=== PATIENT | female | born 1965 | race Caucasian/White ===

== ENCOUNTER 2018-03-29 15:18 | Emergency (ER) | payer BC ==
[2018-03-29 16:03] VITALS: BP 133/76
--- NOTE | 2018-03-29 16:11 | UC ---
FLU HPI - HPI Summary HPI Summary: 52 y/o female presents to the urgent care c/o C/O BODY ACHES AND CHILLS STARTING ON 03/27/18. - History of Current Complaint Chief Complaint: UCRespiratory Stated Complaint: SINUS CONGESTION Time Seen by Provider: 03/29/18 16:09 Hx Obtained From: Patient Onset/Duration: Gradual Onset, Lasting Days - 2 days, Still Present, Worse Since - today Severity Currently: Mild Severity Initially: Moderate Pain Intensity: 6 - body aches Pain Scale Used: 0-10 Numeric Associated Signs & Symptoms: Positive: Myalgia, Sore Throat, Nasal Congestion - clear, Headache. Negative: Vomiting, Diarrhea - Risk Factors Influenza Risk Factors: Negative - Allergy/Home Medications Allergies/Adverse Reactions: Allergies Allergy/AdvReac Type Severity Reaction Status Date / Time cefuroxime [From Ceftin] Allergy Itching Verified 03/29/18 16:03 BETA BLOCKERS AdvReac Coughing Uncoded 03/29/18 16:03 Home Medications: Home Medications amLODIPine TAB* [Norvasc 5 mg TAB*] 10 mg PO DAILY 03/29/18 [History Confirmed 03/29/18] PMH/Surg Hx/FS Hx/Imm Hx Previously Healthy: Yes Endocrine History: Dyslipidemia Cardiovascular History: Hypertension - Surgical History Surgical History: Yes Surgery Procedure, Year, and Place: PARTIAL THYROIDECTOMY - Family History Known Family History: Positive: Cardiac Disease, Hypertension, Diabetes - Social History Occupation: Employed Full-time Lives: With Family Alcohol Use: None Substance Use Type: None Smoking Status (MU): Never Smoked Tobacco Review of Systems All Other Systems Reviewed And Are Negative: Yes Constitutional: Positive: Chills, Fatigue, Other - body aches Skin: Positive: Negative Eyes: Positive: Negative ENT: Positive: Sore Throat, Nasal Discharge - clear, Sinus Congestion, Sinus Pain/Tenderness Respiratory: Positive: Negative Cardiovascular: Positive: Negative Gastrointestinal: Positive: Negative Genitourinary: Positive: Negative Motor: Positive: Negative Neurovascular: Positive: Negative Musculoskeletal: Positive: Myalgia Neurological: Positive: Headache Psychological: Positive: Negative Is Patient Immunocompromised?: No Physical Exam - Summary Physical Exam Summary: VITAL SIGNS: Reviewed. GENERAL: Patient is a well developed and nourished female who is sitting comfortable in the examining table. Patient is not in any acute respiratory distress. HEAD AND FACE: No signs of trauma. No ecchymosis, hematomas or skull depressions. No sinus tenderness. EYES: PERRLA, EOMI x 2, No injected conjunctiva, no nystagmus. No photophobia. EARS: Hearing grossly intact. Ear canals and tympanic membranes are within normal limits. Nose: edematous and erythematous nasal mucosa w/ clear nasal discharge. MOUTH: Positive no erythema, no tonsillar enlargement. Uvula in midline. NECK: Supple, trachea is midline, Positive anterior cervical lymphadenopathy, no JVD, no carotid bruit, no c-spine tenderness, neck with full ROM. No meningeal signs, no Kernig's or brudzinskis signs. CHEST: Symmetric, no tenderness at palpation LUNGS: Clear to auscultation bilaterally. No wheezing or crackles. CVS: Regular rate and rhythm, S1 and S2 present, no murmurs or gallops appreciated. ABDOMEN: Soft, non-tender. No signs of distention. No rebound no guarding, and no masses palpated. Bowel sounds are normal. EXTREMITIES: FROM in all major joints, no edema, no cyanosis or clubbing. NEURO: Alert and oriented x 3. No acute neurological deficits. Speech is normal and follows commands. SKIN: Dry and warm Triage Information Reviewed: Yes Vital Signs: Initial Vital Signs Temp 99.3 F 03/29/18 15:58 Pulse 91 03/29/18 15:58 Resp 16 03/29/18 15:58 BP 133/76 03/29/18 15:58 Pulse Ox 98 03/29/18 15:58 Flu Course/Dx - Differential Dx/Diagnosis Differential Diagnosis/HQI/PQRI: Bronchitis, Influenza, Upper Respiratory Infection, Other - oral [facility] Provider Diagnosis: Candidiasis of mouth, Acute viral syndrome Discharge - Sign-Out/Discharge Documenting (check all that apply): Patient Departure - d/c home All imaging exams completed and their final reports reviewed: No Studies - Discharge Plan Condition: Stable Disposition: HOME Prescriptions: Ibuprofen TAB* [Motrin TAB* 600 MG] 600 mg PO Q6H PRN #30 tab PRN Reason: Pain Nystatin SUSPENSION ORAL SYR* 100,000 units PO QID #1 udc Patient Education Materials: Oral Candidiasis (ED), Viral Syndrome (ED) Forms: *Work Release Referrals: Briana Alejandre NP [Primary Care Provider] - 3 Days Additional Instructions: 1-Please take ibuprofen PO q6-8hrs prn as instructed after meals to alleviate pain and swelling. Increase fluid intake, eat well, rest and avoid strenuous exercise 2- Please Take Nystatin PO as directed to alleviate oral trush, If not improvement please f/u w/ your PCP for further management 3-If symptoms do not improve or worsen please return to the urgent care or f/u with your PCP for further evaluation and treatment. 4- Influenza A&B: negative - Billing Disposition and Condition Condition: STABLE Disposition: Home
== END 2018-03-29 17:10 | disposition home or self-care (01) ==
LOC: UCEAST 15:18
DX: B37.0 Candidal stomatitis (principal); B34.9 Viral infection, unspecified; Z88.1 Allergy status to other antibiotic agents; Z88.8 Allergy status to other drugs, medicaments and biological substances; I10 Essential (primary) hypertension
CPT/HCPCS: 99212; G0463